=== PATIENT | male | born 1960 | race Hispanic/Latino ===

== ENCOUNTER 2018-12-09 13:46 | Emergency (ER) | payer OTHER ==
[2018-12-09 13:53] VITALS: RESP 18; TEMP 97
[2018-12-09 14:31] LABS: BASO % 0.5 % (0.0-2.0); EOS # 0.3 K/uL (0.0-0.7); HEMOGLOBIN 16.9 g/dL (12.0-18.0); LYMPH # 1.6 K/uL (1.0-4.3); MEAN CORPUSCULAR HEMOGLOBIN 30.6 pg (27.0-31.0); MEAN PLATELET VOLUME 8.5 fl (7.2-11.7); MONO # 0.6 K/uL (0.0-0.8); MONO % 9.7 % (0.0-10.0); NEUT % 61.8 % (50.0-75.0); NRBC % 0.1 % (0.0-0.0); RBC 5.52 Mil/uL (4.40-5.90); RED CELL DISTRIBUTION WIDTH 14.1 % (11.5-14.5); WHITE BLOOD COUNT 6.5 K/uL (4.8-10.8)
[2018-12-09 14:41] LABS: PROTHROMBIN TIME 11.1 Seconds (9.8-13.1)
[2018-12-09 14:44] LABS: PARTIAL THROMBOPLASTIN TIME 37.3 Seconds (25.6-37.1)
--- NOTE | 2018-12-09 14:48 | CT ---
Date of service: 12/09/2018 PROCEDURE: CT HEAD WITHOUT CONTRAST. HISTORY: bilateral weakness legs numbness to arms COMPARISON: None available. TECHNIQUE: Axial computed tomography images were obtained through the head/brain without intravenous contrast. Radiation dose: Total exam DLP = 916.33 mGy-cm. This CT exam was performed using one or more of the following dose reduction techniques: Automated exposure control, adjustment of the mA and/or kV according to patient size, and/or use of iterative reconstruction technique. FINDINGS: HEMORRHAGE: No intracranial hemorrhage. BRAIN: Suspect minimal chronic periventricular white matter ischemic changes.. Mild generalized volume loss with slightly more localized bifrontal cortical atrophic changes No obvious parenchymal nor extra-axial masses identified. VENTRICLES: No obstructive hydrocephalus however note made of prominent on left wing of the cisterna magna.. CALVARIUM: Unremarkable. Note made of a small elliptical shaped extra-axial calcification in the right parasagittal frontal region that probably represents a dural base calcification however the possibility of an incidental small calcified meningioma not excluded PARANASAL SINUSES: Minimal mucosal thickening seen within a few ethmoid air cells. MASTOID AIR CELLS: Unremarkable as visualized. No inflammatory changes. OTHER FINDINGS: None. IMPRESSION: Suspect minimal chronic periventricular white matter ischemic changes.. Mild generalized volume loss with slightly more localized bifrontal cortical atrophic changes
[2018-12-09 14:55] LABS: ALB/GLOB RATIO 1.6 (1.0-2.1); ALBUMIN 4.8 g/dL (3.5-5.0); ALT/SGPT 25 U/L (21-72); AST/SGOT 25 U/L (17-59); BLOOD UREA NITROGEN 27 mg/dl (9-20); GFR NON-AFRICAN AMERICAN > 60
--- NOTE | 2018-12-09 15:14 | CT ---
Date of service: 12/09/2018 PROCEDURE: CT Cervical Spine without contrast HISTORY: Bilateral hand numbness; weak legs COMPARISON: No prior study available comparison. TECHNIQUE: Axial computed tomography images were obtained of the cervical spine without the use of intravenous contrast. Coronal and sagittal reformatted images were created and reviewed. Radiation dose: Total exam DLP = 341.17 mGy-cm. This CT exam was performed using one or more of the following dose reduction techniques: Automated exposure control, adjustment of the mA and/or kV according to patient size, and/or use of iterative reconstruction technique. FINDINGS: VERTEBRAE: No acute compression fractures no retropulsed fragments. Vertebral bodies exhibit normal stature. There is straightening of the normal cervical lordosis which could be secondary to patient positioning in the gantry however underlying element of muscle spasm may contribute. DISCS/SPINAL CANAL/NEURAL FORAMINA: There is congenital canal stenosis which is exacerbated by multilevel degenerative spondylosis. At the C2-C3 level, there is minor disc space narrowing more so along the anterior disc margin. Small central and bilateral disc protrusion compresses the ventral surface of the thecal sac and spinal cord more so on the left than the right. The central canal is mildly narrowed. Minimal degenerative squaring of the uncovertebral joints and mild facet arthropathy. Exit foramina adequate. At the C3-C4 level, there is relatively adequate disc height and small central and bilateral disc protrusion which compresses the ventral surface of the thecal sac and spinal cord. Central canal is mildly stenotic. Minor degenerative squaring of the uncovertebral joints. Facets also quite hypertrophic on the left and mildly hypertrophic on the right side. At the C4-C5 level, there is relatively adequate disc height. Small central and bilateral disc herniation ridge complex contiguous with slightly hypertrophic uncovertebral joints.. There is significant canal stenosis and cord compression. The facets moderately to fairly significantly hypertrophic on the left side and mildly hypertrophic on the right. At the C5-C6 level, there is moderate to fairly significant disc space narrowing with endplate eburnation. Small irregular disc ridge complex contiguous with hypertrophic uncovertebral joints. Facets also hypertrophic left greater than right. Significant central canal stenosis and cord compression. Mild disc space narrowing with small irregular disc ridge complex contiguous with hypertrophic uncovertebral joints. The facets also quite hypertrophic. There is significant central canal and bilateral foraminal stenosis. PARASPINAL SOFT TISSUES: Unremarkable. OTHER FINDINGS: None. IMPRESSION: No acute fractures. There is underlying congenital canal stenosis exacerbated at nearly every level by degenerative spondylosis severe canal stenosis and cord compression C4-C5, C5-C6 and C6-C7 levels and to a lesser degree remaining levels.. Follow-up MRI of the cervical spine is recommended.
[2018-12-09] MEDS ORDERED: Dexamethasone 10 MG in Sodium Chloride 0.9% 50 ML IV ONE (15:25)
--- NOTE | 2018-12-09 15:27 | RAD ---
Date of service: 12/09/2018 HISTORY: SOB COMPARISON: No prior. FINDINGS: LUNGS: The lungs are well inflated and clear. PLEURA: No pleural effusions or pneumothorax. CARDIOVASCULAR: The heart is normal in size. No aortic atherosclerotic calcifications present. OSSEOUS STRUCTURES: Within normal limits for the patient's age. VISUALIZED UPPER ABDOMEN: Normal. OTHER FINDINGS: None. IMPRESSION: No active pulmonary disease.
--- NOTE | 2018-12-09 16:47 | CARD ---
APPROVED REPORT Date of service: 12/09/2018 EKG Measurement Heart [id number] NH [id number] [id number] <Conclusion> Normal sinus rhythm Minimal voltage criteria for LVH, may be normal variant Inferior infarct, age undetermined Abnormal ECG
--- NOTE | 2018-12-09 17:08 | ED PDOC ---
HPI:Nausea, Vomiting, Diarrhea Time Seen by Provider: 12/09/18 13:56 Chief Complaint (Nursing): Weakness/Neurological Deficit Chief Complaint (Provider): weakness, numbness, neck pain History Per: Patient History/Exam Limitations: no limitations Onset/Duration Of Symptoms: Intermittent Episodes Current Symptoms Are (Timing): Still Present Severity: Severe Quality Of Discomfort: Sharp Exacerbating Factors: Movement, Walking Alleviating Factors: None Additional Complaint(s): 58yo male employee of [employer] presents to ED with c/o numbness to b/l hands and weakness to bilateral lower extremities ongoing now for about 2 weeks and worsening over last few days. Has experienced several falls, including one where he twisted his R ankle, and fell again this morning. Notes difficulty walking up stairs and intermittent numbness to lower extremities. He denies headache, notes some lower neck pain but denies lower back pain. History significant for lumbar laminectomy about 4 years ago at [place]. He denies recent head, neck or back trauma. Denies incontinence or urinary retention. PMD: in [employer] Past Medical History Reviewed: Historical Data, Nursing Documentation, Vital Signs Vital Signs: Last Vital Signs Temp 97 F L 12/09/18 13:52 Pulse 73 12/09/18 13:52 Resp 18 12/09/18 13:52 BP 166/91 H 12/09/18 13:52 Pulse Ox 97 12/09/18 13:52 - Medical History PMH: HTN - Surgical History Other surgeries: AAA repair, partial nephrectomy, lumbar laminectomy - Family History Family History: States: Unknown Family Hx - Living Arrangements Living Arrangements: With Family - Social History Current smoker - smoking cessation education provided: No - Allergies Allergies/Adverse Reactions: Allergies Allergy/AdvReac Type Severity Reaction Status Date / Time No Known Allergies Allergy Verified 12/09/18 13:48 Review of Systems ROS Statement: Except As Marked, All Systems Reviewed And Found Negative Constitutional: Negative for: Fever Cardiovascular: Negative for: Chest Pain Respiratory: Negative for: Shortness of Breath Gastrointestinal: Negative for: Abdominal Pain Genitourinary Male: Negative for: Dysuria Musculoskeletal: Positive for: Neck Pain Skin: Negative for: Rash Neurological: Positive for: Weakness, Numbness. Negative for: Incoordination, Change in Speech, Confusion, Headache, Dizziness Psych: Negative for: Suicidal ideation Physical Exam - Reviewed Nursing Documentation Reviewed: Yes Vital Signs Reviewed: Yes - Physical Exam Appears: Positive for: Well, Non-toxic, No Acute Distress Head Exam: Positive for: ATRAUMATIC, NORMAL INSPECTION, NORMOCEPHALIC Skin: Positive for: Normal Color, Warm, DRY Eye Exam: Positive for: EOMI, Normal appearance, PERRL ENT: Positive for: Normal ENT Inspection Neck: Positive for: Normal, Painless ROM Cardiovascular/Chest: Positive for: Regular Rate, Rhythm Respiratory: Positive for: CNT, Normal Breath Sounds Gastrointestinal/Abdominal: Positive for: Normal Exam, Soft Back: Positive for: Normal Inspection Extremity: Positive for: Normal ROM Neurologic/Psych: Positive for: Alert, Oriented, Motor/Sensory Deficits (strength 5/5 b/l at time exam), Gait (steady but slow), Other (poor ability to stay on tip toes, off balance). Negative for: Aphasia - Laboratory Results Result Diagrams: 12/09/18 14:25 12/09/18 14:25 Lab Results: PT 11.1 Seconds (9.8-13.1) 12/09/18 14:25 INR 1.0 12/09/18 14:25 APTT 37.3 Seconds (25.6-37.1) H 12/09/18 14:25 Troponin I < 0.0120 ng/mL (0.00-0.120) 12/09/18 14:25 Total Bilirubin 0.6 mg/dl (0.2-1.3) 12/09/18 14:25 AST 25 U/L (17-59) 12/09/18 14:25 ALT 25 U/L (21-72) 12/09/18 14:25 Alkaline Phosphatase 63 U/L (38-126) 12/09/18 14:25 Total Protein 7.8 G/DL (6.3-8.2) 12/09/18 14:25 Albumin 4.8 g/dL (3.5-5.0) 12/09/18 14:25 Globulin 3.0 gm/dL (2.2-3.9) 12/09/18 14:25 Albumin/Globulin Ratio 1.6 (1.0-2.1) 12/09/18 14:25 - ECG O2 Sat by Pulse Oximetry: 97 Medical Decision Making Medical Decision Making: CT brain and CSpine initiated, labs and EKG ordered He declined pain medicine. Patient does not take any blood thinners. Date of service: 12/09/2018 PROCEDURE: CT Cervical Spine without contrast HISTORY: Bilateral hand numbness; weak legs COMPARISON: No prior study available comparison. TECHNIQUE: Axial computed tomography images were obtained of the cervical spine without the use of intravenous contrast. Coronal and sagittal reformatted images were created and reviewed. Radiation dose: Total exam DLP = 341.17 mGy-cm. This CT exam was performed using one or more of the following dose reduction techniques: Automated exposure control, adjustment of the mA and/or kV according to patient size, and/or use of iterative reconstruction technique. FINDINGS: VERTEBRAE: No acute compression fractures no retropulsed fragments. Vertebral bodies exhibit normal stature. There is straightening of the normal cervical lordosis which could be secondary to patient positioning in the gantry however underlying element of muscle spasm may contribute. DISCS/SPINAL CANAL/NEURAL FORAMINA: There is congenital canal stenosis which is exacerbated by multilevel degenerative spondylosis. At the C2-C3 level, there is minor disc space narrowing more so along the anterior disc margin. Small central and bilateral disc protrusion compresses the ventral surface of the thecal sac and spinal cord more so on the left than the right. The central canal is mildly narrowed. Minimal degenerative squaring of the uncovertebral joints and mild facet arthropathy. Exit foramina adequate. At the C3-C4 level, there is relatively adequate disc height and small central and bilateral disc protrusion which compresses the ventral surface of the thecal sac and spinal cord. Central canal is mildly stenotic. Minor degenerative squaring of the uncovertebral joints. Facets also quite hypertrophic on the left and mildly hypertrophic on the right side. At the C4-C5 level, there is relatively adequate disc height. Small central and bilateral disc herniation ridge complex contiguous with slightly hypertrophic uncovertebral joints.. There is significant canal stenosis and cord compression. The facets moderately to fairly significantly hypertrophic on the left side and mildly hypertrophic on the right. At the C5-C6 level, there is moderate to fairly significant disc space narrowing with endplate eburnation. Small irregular disc ridge complex contiguous with hypertrophic uncovertebral joints. Facets also hypertrophic left greater than right. Significant central canal stenosis and cord compression. Mild disc space narrowing with small irregular disc ridge complex contiguous with hypertrophic uncovertebral joints. The facets also quite hypertrophic. There is significant central canal and bilateral foraminal stenosis. PARASPINAL SOFT TISSUES: Unremarkable. OTHER FINDINGS: None. IMPRESSION: No acute fractures. There is underlying congenital canal stenosis exacerbated at nearly every level by degenerative spondylosis severe canal stenosis and cord compression C4-C5, C5-C6 and C6-C7 levels and to a lesser degree remaining levels.. Follow-up MRI of the cervical spine is recommended. Accession No. : [id number] Patient Name / ID : DEVIN RIVERA / [id number] Exam Date : 12/09/2018 14:28:19 ( Approved ) Study Comment : Sex / Age : M / 58Y Creator : Dilip Nam MD Dictator : Dilip Nam MD Manager Facility : [employer] As[employer]er : Dilip Nam MD Approver2 : Report Date : 12/09/2018 14:45:02 My Comment : Date of service: 12/09/2018 PROCEDURE: CT HEAD WITHOUT CONTRAST. HISTORY: bilateral weakness legs numbness to arms COMPARISON: None available. TECHNIQUE: Axial computed tomography images were obtained through the head/brain without intravenous contrast. Radiation dose: Total exam DLP = 916.33 mGy-cm. This CT exam was performed using one or more of the following dose reduction techniques: Automated exposure control, adjustment of the mA and/or kV according to patient size, and/or use of iterative reconstruction technique. FINDINGS: HEMORRHAGE: No intracranial hemorrhage. BRAIN: Suspect minimal chronic periventricular white matter ischemic changes.. Mild generalized volume loss with slightly more localized bifrontal cortical atrophic changes No obvious parenchymal nor extra-axial masses identified. VENTRICLES: No obstructive hydrocephalus however note made of prominent on left wing of the cisterna magna.. CALVARIUM: Unremarkable. Note made of a small elliptical shaped extra-axial calcification in the right parasagittal frontal region that probably represents a dural base calcification however the possibility of an incidental small calcified meningioma not excluded PARANASAL SINUSES: Minimal mucosal thickening seen within a few ethmoid air cells. MASTOID AIR CELLS: Unremarkable as visualized. No inflammatory changes. OTHER FINDINGS: None. IMPRESSION: Suspect minimal chronic periventricular white matter ischemic changes.. Mild generalized volume loss with slightly more localized bifrontal cortical atrophic changes Labs reviewed and unremarkable STAT MRI CSpine and TSpine ordered Dr Adams neurology contacted, recommended decadron 10mg IV now and stat neurosurgical consultation Discussed prelim results w patient and he requested transfer to [place] as prior spinal surgery there. Dr López discussed with Dr Correia at [place] who accepted pt for transfer 450p transfer center at [place] called, I discussed case w JAMMIE Aguiar in ED for ED/ED transfer, Dr Correia accepting Morphine 2mg IV ordered for pain. 515p consent obtained for transfer. MRI discs to be transported w patient. Disposition - Disposition
[2018-12-09 17:27] VITALS: O2SAT 97
--- NOTE | 2018-12-09 17:33 | ED PDOC ---
HPI: General Adult Time Seen by Provider: 12/09/18 13:56 Chief Complaint (Nursing): Weakness/Neurological Deficit Additional Complaint(s): 58yo male employee of [employer] presents to ED with c/o numbness to b/l hands and weakness to bilateral lower extremities ongoing now for about 2 weeks and worse son over last few days. Has experienced several falls, including one where he twisted his R ankle, and fell again this morning. Notes difficulty walking up stairs and intermittent numbness to lower extremities. He denies headache, notes some lower neck pain but denies lower back pain. History significant for lumbar laminectomy about 4 years ago at [place]. He denies recent head, neck or back trauma. Denies incontinence or urinary retention. PMD: in [facility] Past Medical History Reviewed: Historical Data, Nursing Documentation, Vital Signs Vital Signs: Last Vital Signs Temp 97 F L 12/09/18 13:52 Pulse 78 12/09/18 17:19 Resp 18 12/09/18 17:19 BP 154/88 H 12/09/18 17:19 Pulse Ox 97 12/09/18 17:27 - Medical History PMH: HTN - Surgical History Other surgeries: AAA repair, partial nephrectomy, lumbar laminectomy - Family History Family History: States: Unknown Family Hx - Living Arrangements Living Arrangements: With Family - Social History Current smoker - smoking cessation education provided: No - Home Medications Home Medications: Ambulatory Orders Medication Instructions Recorded Lamotrigine [Lamictal] 200 mg PO HS 12/09/18 Metoprolol Tartrate [Lopressor] 50 mg PO Q12 12/09/18 Multivitamin [Multi-Vitamin Daily] 1 tab PO DAILY 12/09/18 - Allergies Allergies/Adverse Reactions: Allergies Allergy/AdvReac Type Severity Reaction Status Date / Time No Known Allergies Allergy Verified 12/09/18 13:48 Review of Systems Constitutional: Negative for: Fever Cardiovascular: Negative for: Chest Pain Respiratory: Negative for: Shortness of Breath Gastrointestinal: Negative for: Nausea Musculoskeletal: Positive for: Neck Pain. Negative for: Leg Pain, Foot Pain Skin: Negative for: Rash, Lesions Neurological: Positive for: Weakness, Numbness. Negative for: Headache, Dizz iness Psych: Negative for: Suicidal ideation Physical Exam - Reviewed Nursing Documentation Reviewed: Yes Vital Signs Reviewed: Yes - Physical Exam Appears: Positive for: Well, Non-toxic, No Acute Distress Head Exam: Positive for: ATRAUMATIC, NORMAL INSPECTION, NORMOCEPHALIC Skin: Positive for: Normal Color, Warm, DRY Eye Exam: Positive for: EOMI, Normal appearance, PERRL ENT: Positive for: Normal ENT Inspection Neck: Positive for: Pain On Movement Of Neck Cardiovascular/Chest: Positive for: Regular Rate, Rhythm Respiratory: Positive for: CNT, Normal Breath Sounds Gastrointestinal/Abdominal: Positive for: Normal Exam, Soft Back: Positive for: Normal Inspection Extremity: Positive for: Normal ROM Neurologic/Psych: 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 Negative for: Aphasia, Facial Droop - Laboratory Results Result Diagrams: 12/09/18 14:25 12/09/18 14:25 Lab Results: PT 11.1 Seconds (9.8-13.1) 12/09/18 14:25 INR 1.0 12/09/18 14:25 APTT 37.3 Seconds (25.6-37.1) H 12/09/18 14:25 Troponin I < 0.0120 ng/mL (0.00-0.120) 12/09/18 14:25 Total Bilirubin 0.6 mg/dl (0.2-1.3) 12/09/18 14:25 AST 25 U/L (17-59) 12/09/18 14:25 ALT 25 U/L (21-72) 12/09/18 14:25 Alkaline Phosphatase 63 U/L (38-126) 12/09/18 14:25 Total Protein 7.8 G/DL (6.3-8.2) 12/09/18 14:25 Albumin 4.8 g/dL (3.5-5.0) 12/09/18 14:25 Globulin 3.0 gm/dL (2.2-3.9) 12/09/18 14:25 Albumin/Globulin Ratio 1.6 (1.0-2.1) 12/09/18 14:25 - ECG O2 Sat by Pulse Oximetry: 97 Medical Decision Making Medical Decision Making: CT brain and CSpine initiated, labs and EKG ordered He declined pain medicine. Patient does not take any blood thinners. Date of service: 12/09/2018 PROCEDURE: CT Cervical Spine without contrast HISTORY: Bilateral hand numbness; weak legs COMPARISON: No prior study available comparison. TECHNIQUE: Axial computed tomography images were obtained of the cervical spine without the use of intravenous contrast. Coronal and sagittal reformatted images were created and reviewed. Radiation dose: Total exam DLP = 341.17 mGy-cm. This CT exam was performed using one or more of the following dose reduction techniques: Automated exposure control, adjustment of the mA and/or kV according to patient size, and/or use of iterative reconstruction technique. FINDINGS: VERTEBRAE: No acute compression fractures no retropulsed fragments. Vertebral bodies exhibit normal stature. There is straightening of the normal cervical lordosis which could be secondary to patient positioning in the gantry however underlying element of muscle spasm may contribute. DISCS/SPINAL CANAL/NEURAL FORAMINA: There is congenital canal stenosis which is exacerbated by multilevel degenerative spondylosis. At the C2-C3 level, there is minor disc space narrowing more so along the anterior disc margin. Small central and bilateral disc protrusion compresses the ventral surface of the thecal sac and spinal cord more so on the left than the right. The central canal is mildly narrowed. Minimal degenerative squaring of the uncovertebral joints and mild facet arthropathy. Exit foramina adequate. At the C3-C4 level, there is relatively adequate disc height and small central and bilateral disc protrusion which compresses the ventral surface of the thecal sac and spinal cord. Central canal is mildly stenotic. Minor degenerative squaring of the uncovertebral joints. Facets also quite hypertrophic on the left and mildly hypertrophic on the right side. At the C4-C5 level, there is relatively adequate disc height. Small central and bilateral disc herniation ridge complex contiguous with slightly hypertrophic uncovertebral joints.. There is significant canal stenosis and cord compression. The facets moderately to fairly significantly hypertrophic on the left side and mildly hypertrophic on the right. At the C5-C6 level, there is moderate to fairly significant disc space narrowing with endplate eburnation. Small irregular disc ridge complex contiguous with hypertrophic uncovertebral joints. Facets also hypertrophic left greater than right. Significant central canal stenosis and cord compression. Mild disc space narrowing with small irregular disc ridge complex contiguous with hypertrophic uncovertebral joints. The facets also quite hypertrophic. There is significant central canal and bilateral foraminal stenosis. PARASPINAL SOFT TISSUES: Unremarkable. OTHER FINDINGS: None. IMPRESSION: No acute fractures. There is underlying congenital canal stenosis exacerbated at nearly every level by degenerative spondylosis severe canal stenosis and cord compression C4-C5, C5-C6 and C6-C7 levels and to a lesser degree remaining levels.. Follow-up MRI of the cervical spine is recommended. Accession No. : [id number] Patient Name / ID : DEVIN RIVERA / [id number] Exam Date : 12/09/2018 14:28:19 ( Approved ) Study Comment : Sex / Age : M / 58Y Creator : Dilip Nam MD Dictator : Dilip Nam MD Tunneller : Reimbursement Analyst : Dilip Nam MD Approver2 : Report Date : 12/09/2018 14:45:02 My Comment : Date of service: 12/09/2018 PROCEDURE: CT HEAD WITHOUT CONTRAST. HISTORY: bilateral weakness legs numbness to arms COMPARISON: None available. TECHNIQUE: Axial computed tomography images were obtained through the head/brain without intravenous contrast. Radiation dose: Total exam DLP = 916.33 mGy-cm. This CT exam was performed using one or more of the following dose reduction techniques: Automated exposure control, adjustment of the mA and/or kV according to patient size, and/or use of iterative reconstruction technique. FINDINGS: HEMORRHAGE: No intracranial hemorrhage. BRAIN: Suspect minimal chronic periventricular white matter ischemic changes.. Mild generalized volume loss with slightly more localized bifrontal cortical atrophic changes No obvious parenchymal nor extra-axial masses identified. VENTRICLES: No obstructive hydrocephalus however note made of prominent on left wing of the cisterna magna.. CALVARIUM: Unremarkable. Note made of a small elliptical shaped extra-axial calcification in the right parasagittal frontal region that probably represents a dural base calcification however the possibility of an incidental small calcified meningioma not excluded PARANASAL SINUSES: Minimal mucosal thickening seen within a few ethmoid air cells. MASTOID AIR CELLS: Unremarkable as visualized. No inflammatory changes. OTHER FINDINGS: None. IMPRESSION: Suspect minimal chronic periventricular white matter ischemic changes.. Mild generalized volume loss with slightly more localized bifrontal cortical atrophic changes Labs reviewed and unremarkable STAT MRI CSpine and TSpine ordered Dr Adams neurology contacted, recommended decadron 10mg IV now and stat neurosurgical consultation Discussed prelim results w patient and he requested transfer to [facility] as prior spinal surgery there. Dr López discussed with Dr Correia at [facility] who accepted pt for transfer 450p transfer center at [facility] called, I discussed case w JAMMIE Aguiar in ED for ED/ED transfer, Dr Correia accepting Morphine 2mg IV ordered for pain. 515p consent obtained for transfer. MRI discs to be transported w patient. Disposition - Clinical Impression Clinical Impression: Spinal stenosis, Cord compression - Patient ED Disposition Is Patient to be Admitted: Yes Counseled Patient/Family Regarding: Studies Performed, Diagnosis - Disposition Disposition Time: 16:30 Condition: FAIR Instructions: Spinal Stenosis - Pt Status Changed To: Hospital Disposition Of: Inpatient ([facility] ED/ED Dr Correia accepting) - Admit Certification Admit to Inpatient:: After my assessment, the patient will require hospitalization for at least two midnights. This is because of the severity of symptoms shown, intensity of services needed, and/or the medical risk in this patient being treated as an outpatient.
--- NOTE | 2018-12-09 17:39 | MRI ---
Date of service: 12/09/2018 PROCEDURE: MR CERVICAL SPINE WITHOUT CONTRAST HISTORY: Upper and lower ext weakness COMPARISON: None available. TECHNIQUE: Multiecho multiplanar sequences were performed through the cervical spine without the use of intravenous contrast. FINDINGS: Note that the study is slightly limited by motion artifact. No acute compression fractures no retropulsed fragments. Vertebral bodies exhibit normal stature. There is straightening of the normal cervical lordosis which could be due to patient positioning in the gantry however underlying element of muscle spasm may contribute. Vertebral bodies and facets otherwise exhibit normal alignment. Facets normally aligned.. Marrow signal within range. Cervicomedullary junction is unremarkable. There is mild underlying congenital canal stenosis exacerbated at nearly every level by degenerative spondylosis. C2-C3: There is disc desiccation disc space height relatively maintained. No disc herniation or significant disc bulge.. C3-C4: There is disc desiccation. Minimal anterior disc space narrowing. Small asymmetric disc bulge-protrusion larger on the right than left and contiguous with mildly hypertrophic uncovertebral joints. Changes result in compressive effects on the ventral surface of the spinal cord. The left facet is quite hypertrophic. Right facet mildly overgrown. Bilateral foraminal stenosis left greater than right. C4-C5: There is mild disc desiccation more so along the anterior disc margin and mild disc space narrowing more so along the anterior disc margin. There is a moderate-sized central and bilateral disc herniation that results in significant canal stenosis and significant cord compression. The facets also hypertrophic left greater than right with bilateral foraminal stenosis, more so on the left side. Questionable small amount of gliosis within the dorsal margin of the spinal cord just at the level of the inferior disc space margin and superior aspect of the C5 segment. C5-C6: There is disc desiccation and moderate disc space narrowing. Asymmetric disc ridge complex contiguous with hypertrophic uncovertebral joint changes left larger than right. Facets also hypertrophic bilaterally left slightly larger than right. Significant canal stenosis and cord compression of with significant bilateral foraminal stenosis.. Questionable mild gliosis within the left lateral margin of the cord. C6-C7: . There is of disc desiccation however disc space height is relatively maintained. There also a asymmetric disc ridge complex larger on the left than the right contiguous with hypertrophic uncovertebral joints. The facet joints at this level also slightly hypertrophic... These changes result in significant canal stenosis and cord compression. Exit foramina are stenotic bilaterally. C7-T1: There appears to be some very minimal anterior subluxation of C6-C7 over T1. Slight uncovering of the posterior superior surface of the disc noted at this level. Changes result in some minor flattening of the ventral surface of the thecal sac though no significant cord compression. Facet joints are quite hypertrophic at this level. OTHER FINDINGS: Cervicomedullary junction unremarkable. IMPRESSION: Slightly limited motion degraded study. There is underlying mild congenital canal stenosis exacerbated by multilevel degenerative spondylosis with significant cord compression noted at the C4 through C5, through the C6-C7 levels as described. There may also be some mild gliosis within the cervical cord at/just below the C4-C5 and C5-C6 disc space levels.
--- NOTE | 2018-12-09 17:48 | MRI ---
Date of service: 12/09/2018 PROCEDURE: MR THORACIC SPINE WITHOUT CONTRAST HISTORY: Lower extremity weakness COMPARISON: Correlation made with concurrent MRI of the cervical spine TECHNIQUE: Multiecho multiplanar sequences were performed through the thoracic spine without the use of intravenous contrast. FINDINGS: ALIGNMENT: Normal thoracic spinal alignment. Normal thoracic kyphosis. VERTEBRA: Vertebral body height are preserved. MARROW: Marrow signal unremarkable. PARASPINAL SOFT TISSUES: Unremarkable. CORD: Unremarkable thoracic cord. No volume loss, signal abnormality or syrinx. DISCS: No disc herniation, spinal canal stenosis, or neuroforaminal narrowing. OTHER FINDINGS: Note again made of degenerative spondylosis incompletely visualized lower cervical spine however please refer to concurrent MRI cervical spine and corresponding report. No acute fractures. IMPRESSION: There are no acute nor chronic compression deformities nor retropulsed fragments. No evidence of disc herniation or significant disc bulge. The overall central canal and exit foramina adequate.
[2018-12-09 21:18] VITALS: BP 143/88; PULSE 81
== END 2018-12-09 23:10 | disposition short-term general hospital (02) ==
LOC: H.ER 13:46
DX: M48.02 Spinal stenosis, cervical region (principal); G95.20 Unspecified cord compression; M25.571 Pain in right ankle and joints of right foot; R20.2 Paresthesia of skin; R29.6 Repeated falls; I10 Essential (primary) hypertension; Z79.899 Other long term (current) drug therapy; Z86.79 Personal history of other diseases of the circulatory system
CPT/HCPCS: 70450; 71045; 72125; 72141; 72146; 80053; 83735; 84100; 84443; 84484; 85025; 85610; 85730; 93005; 99283; J1100; J2270